=== PATIENT | male | born 1995 | race African-American/Black ===

== ENCOUNTER 2019-11-29 16:33 | Emergency (ER) | payer SELFPAY ==
[~2019-11-29] VITALS: Ht 177.8 cm; Wt 68.0 kg
[~2019-11-29 16:33] MED LIST: ALBU1.257 IH; BECL8.7A6 IH; CONCERTA; METH10TA4 PO; METH20TA PO
[2019-11-29 16:45] VITALS: BP_SYST 153
[2019-11-29] MEDS ORDERED: ONDANSETRON HCL 4 MG/2 ML VIAL IVP ONE (17:00)
[2019-11-29] MEDS ORDERED: METHADONE HCL 10 MG TABLET PO ONE (17:00)
[2019-11-29] MEDS ORDERED: NACL 0.9% 1,000 ML IV ONE (17:00)
[2019-11-29 17:49] LABS: CALCIUM 9.7 mg/dL (8.4-11.0); CREATININE 0.9 mg/dL (0.55-1.30); POTASSIUM 3.5 mmol/L (3.5-5.1)
[2019-11-29 17:51] LABS: HEMATOCRIT 44.4 % (36-54); HEMOGLOBIN 14.7 g/dL (14.0-18.0); MEAN CORPUSCULAR HGB CONC 33 % (32-36)
[2019-11-29] MEDS ORDERED: ONDANSETRON 4 MG ODT TAB ONE (17:53)
[2019-11-29 17:56] LABS: BASOPHILS # (AUTO) 0.1 K/uL (0.0-0.2); BASOPHILS % (AUTO) 0.6 % (0.0-2.0); EOSINOPHILS # (AUTO) 0.3 K/uL (0.0-0.4); EOSINOPHILS % (AUTO) 2.5 % (0.0-4.0); MEAN CORPUSCULAR HEMOGLOBIN 27 pg (27-31); MEAN CORPUSCULAR VOLUME 82 fL (79.0-98.0); MONOCYTES # (AUTO) 0.5 K/uL (0.0-1.0); MONOCYTES % (AUTO) 4.8 % (1.7-9.3); NEUTROPHILS # (AUTO) 7.7 K/uL (1.8-7.7); NEUTROPHILS % (AUTO) 73.1 % (40.0-70.0); PLATELET COUNT (AUTO) 280 K/uL (130-430); RED BLOOD CELL COUNT(AUTO) 5.41 MIL/uL (4.2-6.2); RED CELL DISTRIBUTION WIDTH 12.4 % (9.0-15.0); WHITE BLOOD COUNT (AUTO) 10.6 K/uL (4.8-10.8)
[2019-11-29 18:00] LABS: ALBUMIN 3.7 g/dL (3.4-4.8); TOTAL BILIRUBIN 0.4 mg/dL (0.0-1.0)
[2019-11-29 18:41] VITALS: BP_SYST 153
== END 2019-11-29 18:41 | disposition home or self-care (01) ==
LOC: SED 16:33
DX: F11.23 Opioid dependence with withdrawal (principal); J45.909 Unspecified asthma, uncomplicated; Z79.899 Other long term (current) drug therapy
CPT/HCPCS: 36415; 80053; 83690; 85025; 93005; 96361; 96374; 99284; J2405; J7030; Q0162

== ENCOUNTER 2019-12-19 20:58 | Emergency (ER) | payer MEDICAID ==
[~2019-12-19] VITALS: Ht 175.3 cm; Wt 68.0 kg
[2019-12-19 21:09] VITALS: BP_SYST 135
--- NOTE | 2019-12-19 21:10 | NUR ---
ER at bedside examining patient.
--- NOTE | 2019-12-19 21:13 | NUR ---
pt in gurney, no sob, lung sounds clear. Appears anxious but no distress noted.
[2019-12-19 21:36] LABS: BASOPHILS % (AUTO) 0.4 % (0.0-2.0); EOSINOPHILS # (AUTO) 0.3 K/uL (0.0-0.4); EOSINOPHILS % (AUTO) 5.2 % (0.0-4.0); HEMATOCRIT 41.7 % (36-54); HEMOGLOBIN 13.5 g/dL (14.0-18.0); LYMPHOCYTES # (AUTO) 1.9 K/uL (1.0-5.5); LYMPHOCYTES % (AUTO) 29.9 % (20.5-51.5); MEAN CORPUSCULAR HEMOGLOBIN 27 pg (27-31); MEAN CORPUSCULAR HGB CONC 33 % (32-36); MEAN CORPUSCULAR VOLUME 84 fL (79.0-98.0); MONOCYTES # (AUTO) 0.6 K/uL (0.0-1.0); MONOCYTES % (AUTO) 9.3 % (1.7-9.3); NEUTROPHILS # (AUTO) 3.4 K/uL (1.8-7.7); NEUTROPHILS % (AUTO) 55.2 % (40.0-70.0); PLATELET COUNT (AUTO) 93 K/uL (130-430); RED CELL DISTRIBUTION WIDTH 13.2 % (9.0-15.0); WHITE BLOOD COUNT (AUTO) 6.2 K/uL (4.8-10.8)
[2019-12-19 21:50] LABS: CALCIUM 8.7 mg/dL (8.4-11.0); CREATININE 0.93 mg/dL (0.55-1.30); POTASSIUM 3.8 mmol/L (3.5-5.1)
[2019-12-19 21:55] LABS: ALBUMIN 3.4 g/dL (3.4-4.8); TOTAL BILIRUBIN 0.4 mg/dL (0.0-1.0)
[2019-12-19 21:57] LABS: BILIRUBIN,URINE NEGATIVE (NEGATIVE); BLOOD, URINE NEGATIVE (NEGATIVE); CLARITY/URINE CLEAR (CLEAR); COLOR,URINE YELLOW (YELLOW); GLUCOSE,URINE NEGATIVE (NEGATIVE); KETONES,URINE NEGATIVE (NEGATIVE); LEUKOCYTE ESTERASE ,URINE 1+ (NEGATIVE); NITRITE, URINE NEGATIVE (NEGATIVE); PH,URINE 7.5 (5.0-8.0); PROTEIN URINE NEGATIVE (NEGATIVE); UROBILINOGEN,URINE 0.2 (0.2-1.0)
[2019-12-19 22:00] LABS: BACTERIA,URINE FEW /HPF (None Seen); RBC,URINE 0-3 /HPF (0-3); WBC,URINE 20-50 /HPF (0-3)
[2019-12-19 22:06] LABS: BARBITURATE, URINE POSITIVE (NEG <=200); BENZODIAZEPINE, URINE NEGATIVE (NEG <=150); CANNABINOID, URINE NEGATIVE (NEG <=50); COCAINE, URINE NEGATIVE (NEG <=150); METHAMPHETAMINES SCREEN,URINE NEGATIVE (NEG <=500); OPIATE, URINE NEGATIVE (NEG <=100); PHENCYCLIDINE SCREEN,URINE NEGATIVE (NEG <=25); UR TRICYCLIC ANTIDEPRESSANTS NEGATIVE (NEG <=300); URINE AMPHETAMINE NEGATIVE (NEG <=500); URINE METHADONE NEGATIVE (NEG <=200); URINE OXYCODONE SCREEN NEGATIVE (NEG <=100); URINE PROPOXYPHENE SCREEN NEGATIVE (NEG <=300)
[2019-12-19 23:24] VITALS: BP_SYST 135
== END 2019-12-19 23:24 | disposition left against medical advice (07) ==
LOC: SED 20:58
DX: R06.02 Shortness of breath (principal); R00.2 Palpitations; D69.6 Thrombocytopenia, unspecified; N39.0 Urinary tract infection, site not specified; J45.909 Unspecified asthma, uncomplicated; Z79.899 Other long term (current) drug therapy
CPT/HCPCS: 36415; 71046-TC; 80053; 80307; 81000-TC; 85025; 87086; 93005; 99285

== ENCOUNTER 2021-04-05 22:42 | Emergency (ER) | payer MEDICAID ==
[~2021-04-05] VITALS: Ht 175.3 cm; Wt 72.6 kg
[2021-04-05 22:42] VITALS: BP_SYST 161
--- NOTE | 2021-04-06 01:34 | NUR ---
Per [facility] parts counter clerk, pt LWBS.
== END 2021-04-06 01:34 | disposition left against medical advice (07) ==
LOC: SED 22:42
DX: R06.02 Shortness of breath (principal); Z53.21 Procedure and treatment not carried out due to patient leaving prior to being seen by health care provider
CPT/HCPCS: 71046-TC

== ENCOUNTER 2021-07-09 20:24 | Emergency (ER) | payer MEDICAID ==
[~2021-07-09] VITALS: Ht 177.8 cm; Wt 68.0 kg
[2021-07-09 20:46] VITALS: BP_SYST 139
[2021-07-09] MEDS ORDERED: NAPR-690 PO (23:01)
== END 2021-07-09 23:30 | disposition home or self-care (01) ==
LOC: SED 20:24
DX: S33.5XXA Sprain of ligaments of lumbar spine, initial encounter (principal); S13.4XXA Sprain of ligaments of cervical spine, initial encounter; J45.909 Unspecified asthma, uncomplicated; Z79.899 Other long term (current) drug therapy; V49.49XA Driver injured in collision with other motor vehicles in traffic accident, initial encounter; Y93.89 Activity, other specified; Y92.89 Other specified places as the place of occurrence of the external cause; Y99.8 Other external cause status
CPT/HCPCS: 72040-TC; 72100-TC; 99284

== ENCOUNTER 2021-08-29 15:53 | Emergency (ER) | payer MEDICAID, SELFPAY ==
[~2021-08-29] VITALS: Ht 167.6 cm; Wt 72.6 kg
[~2021-08-29 15:53] MED LIST changes: +NAPR-690 PO
[2021-08-29 15:58] VITALS: BP_SYST 153
--- NOTE | 2021-08-29 16:02 | NUR ---
Patient to ER bed 04 to gown for evaluation. Side rails up.
[2021-08-29] MEDS ORDERED: ONDANSETRON HCL 4 MG/2 ML VIAL IVP ONE (16:30)
[2021-08-29] MEDS ORDERED: NACL 0.9% 1,000 ML IV ONE ×2 (16:30→20:00)
--- NOTE | 2021-08-29 16:33 | NUR ---
Pt in bed with c/o abdominal pain 8/10 non radiating. Accompanied with mild nausea. A&Ox4. Skin intact. VSS. No chest pain and no sob. No vomiting. Pupils PERRLA. Bed in lowest position. Urine collected and sent to lab. Call light within reach.
--- NOTE | 2021-08-29 17:20 | NUR ---
22g IV placed on Right hand. No infiltration noted. Aspetic technique used. Pt has no c/o. VSS. Medications given as prescribed.
--- NOTE | 2021-08-29 17:36 | NUR ---
Pt taken to CT via wheelchair. VSS.
--- NOTE | 2021-08-29 17:40 | NUR ---
Pt back from CT. Started pt on 1000ml NS again running bolus.
[2021-08-29] MEDS ORDERED: fentaNYL CITRATE/PF 100 MCG/2 ML AMP IVP ONE (17:45)
[2021-08-29 17:51] LABS: BILIRUBIN,URINE NEGATIVE (NEGATIVE); BLOOD, URINE NEGATIVE (NEGATIVE); CLARITY/URINE CLEAR (CLEAR); COLOR,URINE YELLOW (YELLOW); GLUCOSE,URINE NEGATIVE (NEGATIVE); KETONES,URINE NEGATIVE (NEGATIVE); LEUKOCYTE ESTERASE ,URINE NEGATIVE (NEGATIVE); NITRITE, URINE NEGATIVE (NEGATIVE); PH,URINE 7.5 (5.0-8.0); PROTEIN URINE NEGATIVE (NEGATIVE); UROBILINOGEN,URINE 0.2 (0.2-1.0)
--- NOTE | 2021-08-29 19:30 | NUR ---
Accepted care of this patient. Introduced myself and explained the plan of Care. Pt. stable at this time, Denies any current pain/discomfort.
[2021-08-29] MEDS ORDERED: DIPHENOXYLATE HCL/ATROP SULF 2.5 MG TAB PO ONE (20:00)
[2021-08-29] MEDS ORDERED: LOM2.5 PO (20:26)
[2021-08-29] MEDS ORDERED: ONDA-8 TL (20:26)
--- NOTE | 2021-08-29 20:51 | NUR ---
Pt. does not want to stay for 2nd liter of Saline.
[2021-08-29 20:55] VITALS: BP_SYST 130
== END 2021-08-29 20:55 | disposition home or self-care (01) ==
LOC: SED 15:53
DX: K52.9 Noninfective gastroenteritis and colitis, unspecified (principal); J45.909 Unspecified asthma, uncomplicated; Z79.899 Other long term (current) drug therapy
CPT/HCPCS: 74176; 76376; 81003; 96361; 96374; 96375; 99284; J2405; J3010; J7030

== ENCOUNTER 2022-01-23 01:32 | Inpatient (IN) | payer MEDICAID ==
[~2022-01-23] VITALS: Ht 177.8 cm; Wt 65.8 kg
[2022-01-23 01:32] VITALS: BP_SYST 145
[~2022-01-23 01:32] MED LIST changes: +LOM2.5 PO; +ONDA-8 TL
[2022-01-23] MEDS ORDERED: IPRATROPIUM/ALBUTEROL SULFATE 3 ML AMPUL.NEB (DUONEB) ONE (01:45)
[2022-01-23] MEDS ORDERED: NACL 0.9% 1,000 ML IV ONE (01:45)
[2022-01-23] MEDS ORDERED: MAGNESIUM SULFATE 1 GM/2 ML VIAL IVP ONE (01:45)
[2022-01-23] MEDS ORDERED: methylPREDNISolone SOD SUCC 500 MG/VIAL (Solu-MEDROL) IV ONE (01:45)
[2022-01-23] MEDS ORDERED: IPRATROPIUM/ALBUTEROL SULFATE 3 ML AMPUL.NEB (DUONEB) INH ONE ×4 (01:45→07:15)
[2022-01-23] MEDS ORDERED: MAGNESIUM SULFATE 50 ML IV ONE (02:00)
[2022-01-23] MEDS ORDERED: methylPREDNISolone SOD SUCC/PF 62.5 MG/ML VIAL IVP ONE (02:00)
[2022-01-23 02:38] LABS: CALCIUM 7.7 mg/dL (8.4-11.0); CREATININE 0.76 mg/dL (0.55-1.30)
[2022-01-23 02:40] LABS: BASOPHILS # (AUTO) 0.1 K/uL (0.0-0.2); BASOPHILS % (AUTO) 0.6 % (0.0-2.0); EOSINOPHILS # (AUTO) 0.5 K/uL (0.0-0.4); EOSINOPHILS % (AUTO) 5.1 % (0.0-4.0); HEMATOCRIT 40.4 % (36-54); HEMOGLOBIN 13.4 g/dL (14.0-18.0); LYMPHOCYTES # (AUTO) 2.3 K/uL (1.0-5.5); LYMPHOCYTES % (AUTO) 22.7 % (20.5-51.5); MEAN CORPUSCULAR HEMOGLOBIN 26 pg (27-31); MEAN CORPUSCULAR HGB CONC 33 % (32-36); MEAN CORPUSCULAR VOLUME 79 fL (79.0-98.0); MONOCYTES # (AUTO) 0.6 K/uL (0.0-1.0); MONOCYTES % (AUTO) 5.7 % (1.7-9.3); NEUTROPHILS # (AUTO) 6.8 K/uL (1.8-7.7); NEUTROPHILS % (AUTO) 65.9 % (40.0-70.0); PLATELET COUNT (AUTO) 291 K/uL (130-430); RED BLOOD CELL COUNT(AUTO) 5.12 MIL/uL (4.2-6.2); RED CELL DISTRIBUTION WIDTH 13.1 % (9.0-15.0); WHITE BLOOD COUNT (AUTO) 10.4 K/uL (4.8-10.8)
[2022-01-23 02:42] LABS: ALBUMIN 3.5 g/dL (3.4-4.8); TOTAL BILIRUBIN 0.1 mg/dL (0.0-1.0)
[2022-01-23] MEDS ORDERED: ALBU2.5V7 INH (05:41)
[2022-01-23] MEDS ORDERED: MAGNESIUM SULFATE 50 ML IV PRN (08:15)
[2022-01-23] MEDS ORDERED: ONDANSETRON HCL 4 MG/2 ML VIAL IVP PRN (08:15)
[2022-01-23] MEDS ORDERED: ACETAMINOPHEN 325 MG TABLET PO PRN (08:15)
[2022-01-23] MEDS ORDERED: IPRATROPIUM/ALBUTEROL SULFATE 3 ML AMPUL.NEB (DUONEB) INH PRN (08:15)
[2022-01-23] MEDS ORDERED: ZOLPIDEM TARTRATE 5 MG TABLET PO PRN (08:15)
[2022-01-23] MEDS ORDERED: POTASSIUM CHLORIDE 20 MEQ TAB.PRT.SR PO PRN (08:15)
[2022-01-23] MEDS ORDERED: MUPIROCIN 2% TOPICAL OINTMENT 22 GM NS PRN (08:15)
[2022-01-23] MEDS ORDERED: LORazepam 2 MG/ML VIAL IVP PRN (08:15)
[2022-01-23] MEDS ORDERED: DOCUSATE SODIUM 100 MG CAPSULE PO PRN (08:15)
[2022-01-23] MEDS ORDERED: METHYLPREDNISOLONE SOD SUCC 40 MG/ML VIAL IVP SCH (09:00)
[2022-01-23 09:04] VITALS: BP_SYST 133
[2022-01-23 09:14] VITALS: BP_SYST 133
[2022-01-23 09:30] VITALS: BP_SYST 121
[2022-01-23 12:00] VITALS: BP_SYST 125
[2022-01-23 15:25] VITALS: BP_SYST 121
[2022-01-23] MEDS ORDERED: ALBUTEROL SULFATE 0.083% 2.5 MG/3 ML VIAL.NEB INH SCH (19:00)
== END 2022-01-23 22:00 | disposition left against medical advice (07) | DRG 141 ==
LOC: SED 01:32 → SMU 07:47
PROVIDERS: ADMIT General Practice; ATTEND General Practice
DX: J45.901 Unspecified asthma with (acute) exacerbation (principal); R65.10 Systemic inflammatory response syndrome (SIRS) of non-infectious origin without acute organ dysfunction; F12.10 Cannabis abuse, uncomplicated; Z20.822 Contact with and (suspected) exposure to COVID-19
CPT/HCPCS: 36415; 71045; 80053; 85025; 94640; 96361; 96365; 96375; 99291; J1030; J2930; J3475; J7613

== ENCOUNTER 2023-09-19 20:07 | Emergency (ER) | payer MEDICAID ==
[~2023-09-19] VITALS: Ht 180.3 cm; Wt 52.6 kg
[~2023-09-19 20:07] MED LIST changes: +ALBU2.5V7 INH
[2023-09-19 20:17] VITALS: BP_SYST 129; PULSE 82; RESP 20; TEMP 98.8; O2SAT 95
[2023-09-19 20:56] VITALS: TEMP 98.4
[2023-09-19] MEDS: IPRATROPIUM/ALBUTEROL SULFATE 3 ML AMPUL.NEB (DUONEB) INH ONE ×2 (20:59→21:00)
[2023-09-19] MEDS: predniSONE 20 MG TABLET PO ONE (21:08)
[2023-09-19] MEDS ORDERED: ALBU2.5V7 INH (21:18)
[2023-09-19] MEDS ORDERED: ALBMDI INH (21:18)
[2023-09-19] MEDS ORDERED: PRED20TA PO (21:18)
[2023-09-19 21:30] VITALS: BP_SYST 129; PULSE 93; RESP 18; O2SAT 96
== END 2023-09-19 21:30 | disposition home or self-care (01) ==
LOC: SED 20:07
DX: J45.901 Unspecified asthma with (acute) exacerbation (principal); Z79.899 Other long term (current) drug therapy
CPT/HCPCS: 99283; 94640; J7512

== ENCOUNTER 2023-10-15 23:32 | Emergency (ER) | payer MEDICAID ==
[~2023-10-15] VITALS: Ht 175.3 cm; Wt 63.5 kg
[~2023-10-15 23:32] MED LIST changes: +ALBMDI INH; +PRED20TA PO
[2023-10-15 23:53] VITALS: BP_SYST 138; PULSE 87; RESP 16; TEMP 98.1; O2SAT 95
[2023-10-16] MEDS: predniSONE 20 MG TABLET PO ONE (00:51)
[2023-10-16] MEDS ORDERED: ALBMDI INH (01:04)
[2023-10-16] MEDS ORDERED: FLUT1DIS3 INH (01:04)
[2023-10-16] MEDS ORDERED: PRED20TA PO (01:04)
[2023-10-16] MEDS: ALBUTEROL SULFATE 0.083% 2.5 MG/3 ML VIAL.NEB INH ONE (01:06)
[2023-10-16 01:12] VITALS: BP_SYST 138; PULSE 87; RESP 16; TEMP 98.1; O2SAT 94
[2023-10-17] MEDS ORDERED: IBUP-1969 PO (18:40)
[2023-10-17] MEDS ORDERED: DICL20GE TP (18:40)
== END 2023-10-16 01:07 | disposition home or self-care (01) ==
LOC: SED 23:32
DX: J45.901 Unspecified asthma with (acute) exacerbation (principal); R06.02 Shortness of breath; Z79.899 Other long term (current) drug therapy
CPT/HCPCS: 99283; 94640; J7512

== ENCOUNTER 2023-10-17 16:45 | Emergency (ER) | payer OTHER, MEDICAID ==
[~2023-10-17] VITALS: Ht 177.8 cm; Wt 83.9 kg
[~2023-10-17 16:45] MED LIST changes: +FLUT1DIS3 INH
[2023-10-17 16:55] VITALS: BP_SYST 148; PULSE 85; RESP 18; TEMP 97.7; O2SAT 98
[2023-10-17] MEDS: KETOROLAC TROMETHAMINE 60 MG/2 ML VIAL IM ONE (18:00)
[2023-10-17] MEDS ORDERED: DICL20GE TP (18:40)
[2023-10-17] MEDS ORDERED: IBUP-1969 PO (18:40)
[2023-10-17 19:36] VITALS: BP_SYST 148; PULSE 85; RESP 18; TEMP 97.7; O2SAT 98
== END 2023-10-17 19:33 | disposition home or self-care (01) ==
LOC: SED 16:45
DX: S80.02XA Contusion of left knee, initial encounter (principal); J45.909 Unspecified asthma, uncomplicated; Z79.899 Other long term (current) drug therapy; V89.2XXA Person injured in unspecified motor-vehicle accident, traffic, initial encounter; Y93.89 Activity, other specified; Y92.89 Other specified places as the place of occurrence of the external cause; Y99.8 Other external cause status
CPT/HCPCS: 99284; 29505; 73560; 73630; 96372; J1885